=== PATIENT | female | born 1955 | race Caucasian/White ===

== ENCOUNTER 2021-11-02 13:45 | Emergency (ER) | payer MEDICARE, OTHER ==
[~2021-11-02] VITALS: Ht 162.6 cm; Wt 80.0 kg
[2021-11-02] MEDS ORDERED: SYNTHROID25 MCG PO (14:05)
[2021-11-02] MEDS ORDERED: ASPIRIN 81 LOW81 MG PO (14:06)
[2021-11-02] MEDS ORDERED: CRESTOR20 MG PO (14:06)
[2021-11-02] MEDS ORDERED: FLECAINIDE50 MG PO (14:07)
[2021-11-02] MEDS ORDERED: NIACIN500 M2 PO (14:07)
[2021-11-02] MEDS ORDERED: METFORMIN HCL1000 MG PO (14:08)
[2021-11-02] MEDS ORDERED: LOPRESSOR25 MG PO (14:08)
[2021-11-02] MEDS ORDERED: ACTOS15 MG PO (14:09)
[2021-11-02] MEDS ORDERED: MICARDIS20 MG PO (14:09)
[2021-11-02] MEDS ORDERED: OMEPRAZOLE DR40 MG PO (14:12)
[2021-11-02 15:59] VITALS: BP 123/71
== END 2021-11-02 15:59 | disposition home or self-care (01) ==
LOC: ED 13:45
DX: U07.1 COVID-19 (principal); I10 Essential (primary) hypertension

== ENCOUNTER 2021-11-04 15:01 | Emergency (ER) | payer MEDICARE, OTHER ==
[~2021-11-04] VITALS: Ht 162.6 cm; Wt 70.0 kg
[~2021-11-04 15:01] MED LIST: ACTOS15 MG PO; ASPIRIN 81 LOW81 MG PO; CRESTOR20 MG PO; FLECAINIDE50 MG PO; LOPRESSOR25 MG PO; METFORMIN HCL1000 MG PO; MICARDIS20 MG PO; NIACIN500 M2 PO; OMEPRAZOLE DR40 MG PO; SYNTHROID25 MCG PO
[2021-11-04 15:36] LABS: HEMATOCRIT 37.8 % (37.0-47.0); IMMATURE GRANULOCYTES 2.1 % (0.0-5.0); MEAN CELL VOLUME 91.7 fL CALC (80.0-100.0); MEAN CORPUSCULAR HGB 29.1 pG CALC (26.0-32.0); MEAN CORPUSCULAR HGB CONC 31.7 g/dL CAL (32.0-36.0); NEUT# 5.29 thou/uL (2.00-7.15); RED BLOOD COUNT 4.12 mill/uL (4.20-5.60); RED CELL DISTRI WIDTH 12.4 % (11.5-15.5)
[2021-11-04 15:47] LABS: ALBUMIN 3.5 g/dL (3.2-5.0); BILIRUBIN, TOTAL 0.4 mg/dL (0.0-1.4); CREATININE 1.2 mg/dL (0.5-1.0); POTASSIUM 5.1 mmol/l (3.5-5.1); TOTAL PROTEIN 6.9 g/dL (6.3-8.2)
[2021-11-04] MEDS ORDERED: ZOFRAN4 MG/TAB PO (15:59)
[2021-11-04 16:59] VITALS: BP 128/62
== END 2021-11-04 16:59 | disposition home or self-care (01) ==
LOC: ED 15:01
DX: U07.1 COVID-19 (principal); E86.0 Dehydration; I95.9 Hypotension, unspecified; I10 Essential (primary) hypertension